=== PATIENT | female | born 1985 | race Asian ===

== ENCOUNTER 2022-04-23 09:41 | Outpatient (CLI) | payer BC, SELFPAY ==
[2022-04-23 10:54] LABS: Glucose Fasting 90 mg/dL
[2022-04-23 13:04] LABS: Glucose 1 Hour 172 mg/dL
[2022-04-23 13:33] LABS: Glucose 2 Hour 158 mg/dL
[2022-04-23 14:30] LABS: Glucose 3 Hour 123 mg/dL
== END 2022-04-23 09:42 | disposition home or self-care (01) ==
LOC: ANHLAB 09:43
DX: O99.810 Abnormal glucose complicating pregnancy (principal); Z3A.00 Weeks of gestation of pregnancy not specified
CPT/HCPCS: 36415; 82951; 82952